=== PATIENT | male | born 1980 | race Caucasian/White ===

== ENCOUNTER 2024-09-03 20:24 | Inpatient (IN) | payer MEDICAID ==
[~2024-09-03] VITALS: Ht 177.8 cm; Wt 86.1 kg
[2024-09-03 20:29] VITALS: TEMP 96.6
[2024-09-03 21:10] LABS: BASOPHILS # (AUTO) 0.1 X10'3 (0-0.2); BASOPHILS % (AUTO) 1.1 % (0-1); EOSINOPHILS # (AUTO) 0.1 X10'3 (0-0.9); EOSINOPHILS % (AUTO) 1.5 % (0-6); HEMATOCRIT 37.2 % (42.0-52.0); HEMOGLOBIN 12.6 g/dl (14.0-17.9); LYMPHOCYTES # (AUTO) 1.9 X10'3 (1.1-4.8); LYMPHOCYTES % (AUTO) 22.1 % (21-51); MEAN CORPUSCULAR HEMOGLOBIN 28.9 PG (27.0-31.0); MONOCYTES # (AUTO) 0.9 X10'3 (0-0.9); MONOCYTES % (AUTO) 10.4 % (2-12); NEUTROPHILS # (AUTO) 5.7 X10'3 (1.8-7.7); NEUTROPHILS % (AUTO) 64.9 % (42-75); PLATELET COUNT 331 X10'3 (140-440); RED BLOOD COUNT 4.37 X10'6 (4.70-6.10); RED CELL DISTRIBUTION WIDTH 14.1 % (11.5-14.5); WHITE BLOOD COUNT 8.7 X10'3 (4.5-11.0)
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
[2024-09-03 21:18] LABS: ANION GAP 7 (8-16); BLOOD UREA NITROGEN 16 MG/DL (7-18); BUN/CREATININE RATIO 13.6 (10.0-20.0); CALCIUM 8.7 MG/DL (8.5-10.1); CHLORIDE 101 MMOL/L (99-107); CREATININE 1.18 MG/DL (0.60-1.10); GLUCOSE 334 MG/DL (70-104); POTASSIUM 3.8 MMOL/L (3.5-5.1); PRO BRAIN NATRIURETIC PEPTIDE 542 PG/ML (0-125); SODIUM 135 MMOL/L (135-145); TOTAL CARBON DIOXIDE 26.7 MMOL/L (24-32); eCRCL 84 ML/MIN; eGFR 68 ML/MIN
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
[2024-09-03] MEDS: furosemide 10 MG/1 ML 10ml inj IV ONE (21:47)
[2024-09-03] MEDS ORDERED: iohexol 350MG/ML 100ml bottle IV ONE (21:57)
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
--- NOTE | 2024-09-03 22:37 | RADIOLOGY REPORT ---
CTA Chest with intravenous contrast INDICATION: CP/ SOB COMPARISON: None TECHNIQUE: Multidetector spiral CTA of the chest was performed of the chest with intravenous contrast . PULMONARY ANGIOGRAPHY PROTOCOL was utilized using a bolus-tracking technique centered on the main p ulmonary artery. Axial, coronal and sagittal multiplanar and MIP reformats were performed. Radiation Dose : 1. Chest: CTDI volume is 24 mGy. Dose-length product is 851 mGy*cm The dose indicators for CT are the volume Computed Tomography (CT) Dose Index (CTDIvol) and the Dose Length Product (DLP), and are measured in units of mGy and mGy-cm, respectively. These indicators are not patient dose, but values generated from the CT scanner acquisition factors. The report includes radiation exposure data for exposures received during this examination. Findings: Pulmonary artery: No pulmonary embolism Lower neck: Normal thyroid. Lungs: No focal consolidation. No pneumothorax. Trace left pleural effusion. Heart/Vascular Structures: Normal heart size. No pericardial effusion. Coronary artery calcifications and/or stents Lymph Nodes: No adenopathy Pleura: No pleural effusion or significant pneumothorax. Musculoskeletal: No acute osseous abnormality. Soft tissues: Normal. Upper abdomen: Limited portions of the upper abdomen are unremarkable. IMPRESSION: 1. No pulmonary embolism. 2. No pneumonia. 3. Trace left pleural effusion.
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
[2024-09-04] MEDS ORDERED: magnesium Cl slow-release 64mg tablet PO PRN (00:25)
[2024-09-04] MEDS ORDERED: magnesium sulf-water 4G/100mL 100 ML IV PRN (00:25)
[2024-09-04] MEDS ORDERED: mag hydrox/Alum hydrox/simeth 30ml oral suspension PO PRN (00:25)
[2024-09-04] MEDS ORDERED: HYDROcodone/acetaminophen 10/325mg tab PO PRN (00:25)
[2024-09-04] MEDS ORDERED: ondansetron/PF 4mg/2ml inj IV PRN (00:25)
[2024-09-04] MEDS ORDERED: morphine 2 MG/ML inj. syringe IV PRN ×2 (00:25)
[2024-09-04] MEDS ORDERED: magnesium hydroxide 30ml (MOM) UD suspension PO PRN (00:25)
[2024-09-04] MEDS ORDERED: potassium Cl 40MEQ/1/2NS 520ml 520 ML IV PRN (00:25)
[2024-09-04] MEDS ORDERED: HYDROcodone/acetaminophen 5mg/325mg tablet PO PRN (00:25)
[2024-09-04] MEDS ORDERED: potassium Cl 20 mEq SR tablet PO PRN ×2 (00:25)
[2024-09-04] MEDS ORDERED: acetaminophen 325mg tablet PO PRN ×2 (00:25)
[2024-09-04] MEDS ORDERED: magnesium sulf-water 2g/50mL 50 ML IV PRN (00:25)
[2024-09-04] MEDS ORDERED: nitroGLYCERIN 0.4mg SUBLingual tab SL PRN (00:30)
[2024-09-04] MEDS: PERFLUTREN PROTEIN-A MICROSPHR (Optison) 0.22 MG/ML 3ML VIAL IV ONE (00:35)
[2024-09-04 00:51] LABS: APTT 25 SECONDS (22-32); PROTHROMBIN TIME 10.6 SECONDS (9.0-12.0)
[2024-09-04 01:17] LABS: HEMOGLOBIN A1C 9.1 % (4.5-6.2)
[2024-09-04 01:19] VITALS: BP 102/58; PULSE 62; RESP 24; O2SAT 95
[2024-09-04] MEDS ORDERED: DEXTROSE 15 GM of carb/4 tabs (each vial/BOTTLE has 4 tablets) PO PRN ×2 (01:50)
[2024-09-04] MEDS ORDERED: dextrose 50%-water 50ml dispensing syringe IV PRN ×2 (01:50)
[2024-09-04] MEDS ORDERED: glucagon, human recombinant 1mg kit SUBCUT PRN (01:50)
[2024-09-04] MEDS ORDERED: METO-395 PO (01:51)
[2024-09-04] MEDS ORDERED: ATOR20TA66 PO (01:51)
[2024-09-04] MEDS ORDERED: CLOP75TA34 PO (01:51)
[2024-09-04] MEDS ORDERED: LOSA25TA41 PO (01:51)
[2024-09-04] MEDS ORDERED: INSULIN LISPRO 100 UNIT/ML INSULN.PEN MULTI-DOSE SQ SCH (07:00)
--- NOTE | 2024-09-04 07:14 | ELECTROCARDIOGRAPH REPORT ---
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 Maximilian Benavides Measurements Intervals [place] Rate: 79 P: 66 ME: 131 QRS: 112 QRSD: 86 T: -64 QT: 353 QTc: 405 Interpretive Statements Sinus rhythm Probable lateral infarct, age indeterminate Anteroseptal infarct, old Electronically Signed On 09-05-2024 18:24:[address] Maximilian Benavides Please click the below link to view image of tracing.
[2024-09-04] MEDS ORDERED: K and/or MAG REPLACEMENT MC SCH (08:00)
[2024-09-04] MEDS ORDERED: docusate sod 100mg capsule PO SCH (08:00)
[2024-09-04] MEDS ORDERED: heparin, porcine 5000 units/ml vial SQ SCH (08:00)
[2024-09-04] MEDS ORDERED: temazepam 15mg capsule PO PRN (21:00)
== END 2024-09-04 02:22 | disposition left against medical advice (07) | DRG 198 ==
LOC: ER 20:26 → ED HOLD 23:33
PROVIDERS: ADMIT Internal Medicine Critical Care Medicine; ATTEND Internal Medicine Critical Care Medicine
PROC: B32T1ZZ Computerized Tomography (CT Scan) of Left Pulmonary Artery using Low Osmolar Contrast (ICD-10-PCS; principal; 2024-09-03)
PROC: B3201ZZ Computerized Tomography (CT Scan) of Thoracic Aorta using Low Osmolar Contrast (ICD-10-PCS; 2024-09-03)
PROC: B32S1ZZ Computerized Tomography (CT Scan) of Right Pulmonary Artery using Low Osmolar Contrast (ICD-10-PCS; 2024-09-03)
DX: I25.110 Atherosclerotic heart disease of native coronary artery with unstable angina pectoris (principal); N17.0 Acute kidney failure with tubular necrosis; I50.21 Acute systolic (congestive) heart failure; G20.A1 Parkinson's disease without dyskinesia, without mention of fluctuations; C60.9 Malignant neoplasm of penis, unspecified; Z53.21 Procedure and treatment not carried out due to patient leaving prior to being seen by health care provider; I11.0 Hypertensive heart disease with heart failure; E11.9 Type 2 diabetes mellitus without complications; E78.5 Hyperlipidemia, unspecified; Z86.73 Personal history of transient ischemic attack (TIA), and cerebral infarction without residual deficits; Z95.5 Presence of coronary angioplasty implant and graft; Z91.148 Patient's other noncompliance with medication regimen for other reason; Z88.0 Allergy status to penicillin
CPT/HCPCS: 36415; 71045; 71275; 73610; 80048; 83036; 83735; 83880; 84484; 85025; 85610; 85730; 93005; 96374; 99285; G0378; J1815; J1938; Q9967